=== PATIENT | male | born 1980 | race Caucasian/White ===

== ENCOUNTER 2023-04-02 09:10 | Day surgery (SDC) | payer BC ==
[~2023-04-02 09:10] MED LIST: Acetaminophen 1,000 MG in Premix Bag 1 BAG IV SCH; Lactated Ringers 1,000 ML IV SCH; Pregabalin 75 MG Cap PO SCH; ceFAZolin 2 GM in Sodium Chloride 0.9% 50 ML IV ONE
[2023-04-02] MEDS ORDERED: Rocuronium Bromide 50 MG/5 ML Syringe ONE (09:57)
[2023-04-02] MEDS ORDERED: dexmedeTOMIDine HCl 200 MCG/2 ML SDV ONE (09:57)
[2023-04-02] MEDS ORDERED: Propofol 200 MG/20 ML SDV ONE (09:57)
[2023-04-02] MEDS ORDERED: fentaNYL 100 MCG/2 ML SDV ONE (09:57)
[2023-04-02] MEDS ORDERED: Albuterol 0.083% 2.5 MG/3 ML Neb Soln NEB PRN (09:58)
[2023-04-02] MEDS ORDERED: Morphine 2 MG/ML SYRINGE IVPUSH PRN (09:58)
[2023-04-02] MEDS ORDERED: droPERidol 5 MG/2 ML SDV IVPUSH PRN (09:58)
[2023-04-02] MEDS ORDERED: Metoclopramide 10 MG/2 ML SDV IVPUSH PRN (09:58)
[2023-04-02] MEDS ORDERED: fentaNYL 50 MCG/ML SDV IVPUSH PRN (09:58)
[2023-04-02] MEDS ORDERED: Naloxone 0.4 MG/ML SDV IVPUSH PRN (09:58)
[2023-04-02] MEDS ORDERED: HYDROmorphone 1 MG/ML Syringe IVPUSH PRN (09:58)
[2023-04-02] MEDS ORDERED: Ondansetron 4 MG/2 ML SDV IVPUSH PRN (09:58)
[2023-04-02] MEDS ORDERED: Bupivacaine 0.25% 30 ML SDV ONE (10:03)
[2023-04-02] MEDS ORDERED: Ropivacaine 0.5% 5 MG/ML 30 ML SDV ONE (10:03)
[2023-04-02] MEDS ORDERED: Bupivacaine 0.5% 30 ML SDV ONE (10:10)
[2023-04-02] MEDS ORDERED: ceFAZolin 2 GM Vial ONE (10:53)
[2023-04-02] MEDS ORDERED: Dexamethasone 4 MG/ML 5 ML MDV ONE (10:58)
[2023-04-02] MEDS ORDERED: Ondansetron 4 MG/2 ML SDV ONE (10:58)
[2023-04-02] MEDS ORDERED: ePHEDrine 50 MG/ML SDV ONE (11:41)
[2023-04-02] MEDS ORDERED: Sugammadex Sodium 200 MG/2 ML VIAL ONE (12:04)
[2023-04-02] MEDS ORDERED: Ketorolac 30 MG/ML SDV ONE (12:04)
== END 2023-04-02 13:35 | disposition home or self-care (01) ==
LOC: MW.SDS 09:10
PROVIDERS: ATTEND Surgery
DX: K40.90 Unilateral inguinal hernia, without obstruction or gangrene, not specified as recurrent (principal); D17.6 Benign lipomatous neoplasm of spermatic cord; Z79.899 Other long term (current) drug therapy; Z88.0 Allergy status to penicillin
CPT/HCPCS: 49650; 64486; 64488; A9270; C1781; J0131; J0665; J0690; J1100; J1885; J2405; J2704; J2795; J3010; J3490; J7120